=== PATIENT | male | born 1980 | race Caucasian/White ===

== ENCOUNTER → 2020-05-02 19:11 | Outpatient (BNVA) | payer OTHER, SELFPAY | DX: R06.02 Shortness of breath (principal); R51.9 Headache, unspecified; J32.9 Chronic sinusitis, unspecified; H65.03 Acute serous otitis media, bilateral | CPT/HCPCS: 71046 ==

== ENCOUNTER → 2020-05-05 13:27 | Outpatient (BNVA) | payer OTHER, SELFPAY | PROVIDERS: PCP Family Medicine; Visit Provider Orthopaedic Surgery | DX: M25.511 Pain in right shoulder (principal) | CPT/HCPCS: 72050; 73030 ==

== ENCOUNTER 2020-05-20 15:01 | Outpatient (CLI) | payer OTHER, SELFPAY ==
--- NOTE | 2020-05-20 16:00 | MR_ITS ---
WS: [id number] MRI RIGHT SHOULDER HISTORY: M25.519 - Pain in unspecified shoulder COMPARISON: Shoulder radiograph 05/05/2020 TECHNIQUE: Multiplanar sequences of the shoulder joint are submitted. Very mild AC joint hypertrophy. No significant encroachment upon the rotator cuff. There is mild soft tissue and bone hypertrophy. No subacromial or subdeltoid fluid. No os acromion. Biceps tendon remai ns in the bicipital groove. No increase fluid within the tendon sheath. In the bicipital groove there are 2 separate rounded structures of decreased signal which are most likely a split tear of the herminia ps tendon. There is no increase fluid. This may not be acute. There is increased T2 signal in the cor acohumeral ligament. No rotator cuff tear is identified. No muscle atrophy or edema. There is increased fluid surrounding the subscapularis tendon. Irregularity along the cortical surface of the glenoid and intrasubstance d egeneration within the labrum. There is a partial tear within the superior labrum. MR/MR shoulder RT wo con* [id number] IMPRESSION: 1. No rotator cuff tear identified. 2. Suspicious for small split tear involving the long head of the biceps tendo n in the bicipital groove. No adjacent fluid to suggest this is acute. 3. Increased signal in the coracohumeral ligament. 4. Partial incomplete tear of the superior labrum. 5. Degenerative changes involving the glenohumeral joint.
== END 2020-05-20 15:02 | disposition home or self-care (01) ==
LOC: RADSHAW 15:05
PROVIDERS: PCP Family Medicine; Visit Provider Orthopaedic Surgery
DX: S43.431A Superior glenoid labrum lesion of right shoulder, initial encounter (principal); X58.XXXA Exposure to other specified factors, initial encounter
CPT/HCPCS: 73221

== ENCOUNTER 2020-07-07 10:08 | Outpatient (CLI) | payer OTHER, SELFPAY ==
--- NOTE | 2020-07-07 10:00 | CT_ITS ---
WS: [id number] CT CHEST WITHOUT INTRAVENOUS CONTRAST HISTORY: scarring on lung TECHNIQUE: Contiguous 5 mm axial imaging performed on the thorax. Coronal and sagittal reformats are submitted. All CT scans at [facility] use at least one of these dose optimization techniq ues: automated exposure control; mA and/or kV adjustment per patient size (includes targeted exams wh ere dose is matched to clinical indication); or iterative reconstruction. CONTRAST: None DLP: 1193.68 mGycm COMPARISON: Chest radiograph 05/02/2020. Lungs and central airway: Normal. Pleura: Normal. No pleural effusion. Heart and pericardium: Cardiac silhouette appears slightly enlarged. No effusion. Mediastinum and tavo: No adenopathy identified on this unenhanced study. Vessels: Very slight dilatation of the ascending aorta to 4.1 cm. Pulmonary artery size is equal to t he aorta. Chest wall and lower neck: No soft tissue masses. Upper abdomen: Slightly contracted gallbladder. There are a few small calcifications adjacent to the posterior capsule of the RIGHT lobe. May be from prior granulomatous disease or trauma. There is no s oft tissue component. 18 mm LEFT adrenal myelolipoma. Osseous structures: No destructive process. CT/CT chest wo con [id number] IMPRESSION: 1. No pulmonary mass or pneumonia. 2. Very mild ectasia of the ascending aorta to 4.1 cm. 3. Mild pulmonary hypertension. 4. Benign LEFT adrenal myelolipoma. 5. Mild enlarged heart. Follow up echocardiogram may be helpful to evaluate fo r underlying structural or functional abnormality.
[2020-07-07 12:06] LABS: Basophils # 0.1 10^3/uL (0.0-0.1); Basophils % 0.9 %; Eosinophils # 0.1 10^3/uL (0.0-0.8); Eosinophils % 1.7 %; Hematocrit 45.3 % (42.0-52.0); Hemoglobin 14.8 g/dL (11.7-16.6); Lymphocytes # 1.4 10^3/uL (0.8-4.8); Lymphocytes % 25.6 %; Mean Corpuscular HGB Conc 32.7 g/dL (30.0-36.0); Mean Corpuscular Hemoglobin 29.5 pg (28.0-34.0); Mean Corpuscular Volume 90.4 fL (80-94); Mean Platelet Volume 8.9 fL (7.4-10.4); Monocytes # 0.5 10^3/uL (0.2-0.9); Monocytes % 9.6 %; Neutrophils # 3.27 10^3/uL (1.8-7.7); Neutrophils % 61.6 %; Nucleated Red Blood Cells % 0 %; Platelet Count 221 10^3/cmm (130-400); Red Blood Count 5.01 10^6/uL (4.1-5.3); Red Cell Distribution Width 12.9 % (12.1-15.1); White Blood Count 5.3 10^3/uL (4.0-10.0)
[2020-07-08 16:17] LABS: Alternaria Alternata (M6) Ige <0.10 kU/L; Alternaria Class 0; Bermuda Class 2; Bermuda Grass (G2) Ige 1.77 kU/L; Cat Dander (E1) Ige 0.17 kU/L; Cat Dander Class 0/1; Common Ragweed (Short) (W1) Ig <0.10 kU/L; D. Farinae Class 0; Dermatophagoides Class 0; Dermatophagoides Farinae (D2) <0.10 kU/L; Dermatophagoides Pteronyssinus <0.10 kU/L; Dog Dander (E5) Ige 0.11 kU/L; Dog Dander Class 0/1; Elm (T8) Ige <0.10 kU/L; Elm Class 0; English Plantain (W9) Ige 0.14 kU/L; English Plantain Class 0/1; House Dust (Greer) (H1) Ige <0.10 kU/L; House Dust (Hollister- Stier) <0.10 kU/L; House Dust Class 0; Immunoglobulin E 99 kU/L (<OR=114); Johnson Grass (G10) Ige 2.97 kU/L; Johnson Grass Cl 2; June Grass Class 3; Lamb'S Quarters (Goose Foot) 0.15 kU/L; Lamb'S Quarters Class 0/1; Maple (Box Elder) (T1) Ige <0.10 kU/L; Maple Class 0; Meadow Fescue Class 3; Mucor Racemosus Class 0; Oak (T7) Ige 0.21 kU/L; Oak Class 0/1; Penicillium Class 0; Penicillium Notatum (M1) Ige <0.10 kU/L; Perennial Rye Grass Class 3; Ragweeed Class 0; Rough Marsh Elder (W16) Ige <0.10 kU/L; Rough Marsh Elder Class 0; Sweet Vernal Class 3; Timothy Grass Class 3
[2020-07-08 16:53] LABS: Immunoglobulin E 100 kU/L (<OR=114)
[2020-07-13 14:13] LABS: Aspergillus Fumigatus, Igg Ab, 31.1 mg/L (<=102)
== END 2020-07-07 10:09 | disposition home or self-care (01) ==
PROVIDERS: PCP Family Medicine; Visit Provider Internal Medicine Pulmonary Disease
DX: R06.00 Dyspnea, unspecified (principal); I77.819 Aortic ectasia, unspecified site; I27.20 Pulmonary hypertension, unspecified; D17.79 Benign lipomatous neoplasm of other sites; I51.7 Cardiomegaly; Z91.09 Other allergy status, other than to drugs and biological substances; J45.40 Moderate persistent asthma, uncomplicated; R06.02 Shortness of breath
CPT/HCPCS: 36415; 71250; 82785; 85025; 86003

== ENCOUNTER 2020-07-26 09:27 | Outpatient (CLI) | payer OTHER, SELFPAY ==
--- NOTE | 2020-07-26 13:41 | PFTS_ITS ---
Date of Study:07/26/20 Date of Dictation: 07/27/2020 MECHANICS: Forced vital capacity (FVC) is normal. Forced expiratory volume in one second (FEV1) is normal. FEV1/FVC is normal. There is no significant response to bronchodilators FLOW VOLUME LOOP: Normal . LUNG VOLUMES: Total lung capacity (TLC) is normal. Residual volume (RV) is normal. DIFFUSING CAPACITY FOR CARBON MONOXIDE: Normal . INTERPRETATION: The pulmonary function tests are normal. MTDD
== END 2020-07-26 09:28 | disposition home or self-care (01) ==
LOC: RT 09:30
PROVIDERS: PCP Family Medicine; Visit Provider Internal Medicine Pulmonary Disease
DX: R06.00 Dyspnea, unspecified (principal)
CPT/HCPCS: 94060; 94726; 94729; J7611

== ENCOUNTER 2020-09-29 13:08 | Outpatient (CLI) | payer OTHER, SELFPAY ==
--- NOTE | 2020-09-29 13:30 | USCV_ITS ---
Campos Montoya Age: 40 Gender: M : 1980 Exam Date: 09/29/2020 13:43 Ordering Phys: Severiano Doe MD Technologist: Kristina Lin [place] [facility] [place]: ?MARFANS BP: 148 / 99 HR: 57 Rhythm: Sinus Technical Quality: Adequate MEASUREMENTS (Male / Female) Normal Values 2D ECHO LV Diastolic Diameter PLAX 5.8 cm 4.2 - 5.9 / 3.9 - 5.3 cm LV Systolic Diameter PLAX 3.9 cm LV Chamber Size 4.9 cm IVS Diastolic Thickness 1.3 cm 0.6 - 1.0 / 0.6 - 0.9 cm IVS Systolic Thickness 1.7 cm LVPW Diastolic Thickness 0.9 cm 0.6 - 1.0 / 0.6 - 0.9 cm LVPW Systolic Thickness 2.0 cm RV Chamber Size 2.7 cm LVOT Diameter 2.5 cm LV Ejection Fraction 2D Teich 60.4 % LV Ejection Fraction MOD 2C 58.4 % LV Ejection Fraction 2C AL 57.2 % LA Diameter 2.9 cm LA Width 4.2 cm LA Height 3.0 cm RA Width 4.1 cm RA Height 5.4 cm Aorta at Sinotubular Diameter 4.3 cm M-MODE LV Diastolic Diameter MM 5.3 cm 4.2 - 5.9 / 3.9 - 5.3 cm LV Systolic Diameter MM 3.8 cm LV Ejection Fraction MM Teich 56.2 % IVS Diastolic Thickness MM 0.9 cm 0.6 - 1.0 / 0.6 - 0.9 cm IVS Systolic Thickness MM 1.7 cm LVPW Diastolic Thickness MM 1.8 cm 0.6 - 1.0 / 0.6 - 0.9 cm LVPW Systolic Thickness MM 2.0 cm RV Diastolic Diameter MM 1.7 cm Aortic Annulus Diameter 4.5 cm LA Ao Ratio MM 0.7 MV E Point Septal Separation 1.0 cm DOPPLER AV Peak Velocity 94.0 cm/s LVOT Peak Velocity 67.0 cm/s AV Area Cont Eq vti 3.8 cm squared AV Area Cont Eq pk 3.6 cm squared MV Area PHT 5.5 cm squared Mitral E to A Ratio 1.3 MV E' Velocity 36.0 cm/s Mitral E to MV E' Ratio 7.6 Mitral E to LV E' Lateral Ratio 8.0 Mitral E to LV E' Septal Ratio 7.3 TR Peak Velocity 130.0 cm/s TR Peak Gradient 6.8 mmHg TR Mean Velocity 91.3 cm/s TR Mean Gradient 3.7 mmHg TR Velocity Time Integral 33.5 cm TV Peak E Velocity 62.0 cm/s PV Peak Velocity 58.0 cm/s RV Acceleration Time 0.1 s RV Ejection Time 0.3 s RV AcT/ET 0.3 FINDINGS Left Ventricle Left ventricle is dilated. LV systolic function is normal with EF of 55-60%. No regional wall motion abnormalities. Normal diastolic filling pattern. Right Ventricle The right ventricle is normal in size and function. Right Atrium The right atrium is normal in size. Left Atrium The left atrium is normal in size. Mitral Valve Mitral valve prolapse is seen.. Mild mitral regurigtation is noted. Aortic Valve Structurally normal aortic valve without significant sclerosis or stenosis. There is trace aortic regurgitation. Tricuspid Valve Structurally normal tricuspid valve without significant stenosis or regurgitation. Insufficient TR jet to calculate RVSP Pulmonic Valve Structurally normal pulmonic valve without significant stenosis. There is mild pulmonic regurgitation. Pericardium Normal pericardium without effusion. Aorta Aortic root is dilated CONCLUSIONS LV systolic function is normal with EF of 55-60% Diastolic function is normal Mitral valve prolapse with mild mitral regurgitation is noted Trace aortic regurgitation Mild pulmonic regurgitation Aortic root is dilated. Recommend CT evaluation for thoracic aortic aneurysm Nick Ruff MD (Electronically Signed) Final Date: 05 October 2020 23:06 S
== END 2020-09-29 13:09 | disposition home or self-care (01) ==
LOC: RAD 13:11
PROVIDERS: PCP Family Medicine; Visit Provider Internal Medicine Pulmonary Disease
DX: R29.91 Unspecified symptoms and signs involving the musculoskeletal system (principal); I08.0 Rheumatic disorders of both mitral and aortic valves
CPT/HCPCS: 93306